=== PATIENT | female | born 1980 | race African-American/Black ===

== ENCOUNTER 2017-09-08 00:59 | Emergency (ER) | payer MEDICAID ==
[2017-09-08 06:00] VITALS: BP 128/63
== END 2017-09-08 06:00 | disposition home or self-care (01) ==
LOC: ED 00:59
DX: M54.5 Low back pain (principal)
CPT/HCPCS: J1170; J1885

== ENCOUNTER 2017-11-06 23:54 | Emergency (ER) | payer MEDICAID ==
[~2017-11-06] VITALS: Ht 154.9 cm; Wt 87.1 kg
[2017-11-07] VITALS: Ht 154.9 cm; Wt 87.1 kg
[2017-11-07 02:06] LABS: BASOPHIL % 0.5 % (0-2); PLATELET COUNT 237 x10^3mcL (130-400)
[2017-11-07 02:07] LABS: RED CELL DISTRIBUTION WIDTH 19.5 % (11.5-14.5)
[2017-11-07 02:19] LABS: CARBON DIOXIDE 25.4 mmol/L (21-32); CHLORIDE SERUM 106 mmol/L (98-107); CREATININE SERUM 0.9 mg/dL (0.6-1.0); GFR1 > 60 mL/min; GLUCOSE SERUM 97 mg/dL (74-106); POTASSIUM SERUM 4.1 mmol/L (3.5-5.1); SODIUM SERUM 138 mmol/L (136-145)
[2017-11-07 02:23] LABS: ALKALINE PHOSPHATASE 59 U/L (46-116); ALT/SGPT 23 U/L (14-59); AST/SGOT 18 U/L (15-37); BILIRUBIN TOTAL 0.26 mg/dL (0.20-1.00); LIPASE 186 IU/L (73-393)
[2017-11-07 02:25] LABS: ALBUMIN 3.1 g/dL (3.4-5.0)
[2017-11-07 04:13] LABS: AMPHETAMINE QUAL UR NONE DETECTED (NEG <=1000)
[2017-11-07 06:43] VITALS: BP 135/90
== END 2017-11-07 06:43 | disposition home or self-care (01) ==
LOC: ED 23:54
PROVIDERS: Emergency Medicine; Specialist
DX: R07.89 Other chest pain (principal); K21.9 Gastro-esophageal reflux disease without esophagitis
CPT/HCPCS: 83880; J1170; J2405; Q0092